=== PATIENT | female | born 1950 | race Caucasian/White ===

== ENCOUNTER → 2017-08-05 14:28 | Outpatient (CLI) | payer MEDICARE, SELFPAY ==
--- NOTE | 2017-08-05 14:33 | DI.MG.S_ITS ---
BILATERAL DIGITAL SCREENING MAMMOGRAM 3D/2D WITH CAD: 08/05/2017 CLINICAL: Routine screening. Comparison is made to exams dated: 07/19/2016 mammogram, 06/05/2015 mammogram, and 05/20/2014 mammogram - [facility]. There are scattered fibroglandular elements in both breasts. Current study was also evaluated with a Computer Aided Detection (CAD) system. There are benign vascular calcifications in both breasts. No significant masses, calcifications, or other findings are seen in either breast. There has been no significant interval change. IMPRESSION: BENIGN There is no mammographic evidence of malignancy. A 1 year screening mammogram is recommended. This exam was interpreted at Station ID: [id number]. NOTE: For mammograms, a report in lay terms will be sent to the patient. Approximately 15% of breast malignancies will not be visualized mammographically. In the management of a palpable breast mass, a negative mammogram must not discourage biopsy of a clinically suspicious lesion. Electronically Signed By: Sirena patel/flex:08/05/2017 15:07:22 letter sent: Normal Exam ACR BI-RADS Category 2: Benign Finding(s) 3342F
== END ==
PROVIDERS: PCP Physician Assistant; Visit Provider Physician Assistant
DX: Z12.31 Encounter for screening mammogram for malignant neoplasm of breast (principal)
CPT/HCPCS: 77063; 77067; 77080

== ENCOUNTER → 2017-08-23 10:38 | Outpatient (CLI) | payer MEDICARE, SELFPAY ==
[2017-08-23 12:21] LABS: Free T4, Direct Thyroxine 1.13 ng/dL (0.78-2.19)
[2017-08-23 12:35] LABS: Thyroid Stimulating Hormone 2.55 uIU/mL (0.47-4.68)
== END ==
PROVIDERS: PCP Physician Assistant; Visit Provider Physician Assistant
DX: E03.9 Hypothyroidism, unspecified (principal)
CPT/HCPCS: 36415; 84439; 84443

== ENCOUNTER → 2017-11-23 09:51 | Outpatient (CLI) | payer MEDICARE, SELFPAY ==
[2017-11-23 11:12] LABS: Cholesterol 205 mg/dL (140-199); Glucose 97 mg/dL (80-110); HDL Cholesterol 100 mg/dL (40-60); LDL Cholesterol Calculated 80 mg/dL (<100); Triglycerides 127 mg/dL (35-150)
[2017-11-23 11:39] LABS: Thyroid Stimulating Hormone 2.57 uIU/mL (0.47-4.68)
== END ==
PROVIDERS: PCP Physician Assistant; Visit Provider Physician Assistant
DX: E03.9 Hypothyroidism, unspecified (principal); E78.5 Hyperlipidemia, unspecified; I10 Essential (primary) hypertension; R73.01 Impaired fasting glucose
CPT/HCPCS: 36415; 80061; 82947; 84443

== ENCOUNTER 2018-07-30 20:37 | Emergency (ER) | payer MEDICARE, OTHER, SELFPAY ==
[2018-07-30 20:35] VITALS: BP 148/72; PULSE 95; RESP 22; TEMP 36.3; O2SAT 97; BMI 31.3
--- NOTE | 2018-07-30 20:41 | ED_ITS ---
HPI - Fall General Chief Complaint: Trauma Stated Complaint: GLF Time Seen by Provider: 07/30/18 20:41 Source: patient and EMS Mode of arrival: EMS Limitations: other (Intoxication) History of Present Illness HPI Narrative: 68-year-old female not on blood thinners brought in by EMS after she sustained a fall while walking outside of her house. She states she does not know why she fell however does admit to drinking a bottle of wine this evening. EMS reports that she is having some memory issues. The stated that she was able to help them get her off the ground onto the stretcher. They did place her in a cervical collar not on a backboard. Does have bleeding from her face. EMS reports that she has been repeating herself multiple times. Has little recollection of the fall. Related Data Home Medications Medication Instructions Recorded Confirmed aspirin 325 mg PO PRN PRN #0 08/23/16 07/24/18 Previous Rx's Medication Instructions Recorded clindamycin phosphate [Cleocin T] 1 % TP QDAY PRN #30 gm 07/06/17 atorvastatin 10 mg tablet 10 mg PO HS #90 tab 11/14/17 doxycycline hyclate 100 mg capsule 100 mg PO QDAY #90 cap 11/14/17 hydrochlorothiazide 25 mg PO QDAY #90 tab 11/14/17 levothyroxine 88 mcg tablet 88 mcg PO QDAY #90 tab 11/14/17 lisinopril 5 mg tablet 5 mg PO DAILY #90 tab 07/17/18 Allergies Allergy/AdvReac Type Severity Reaction Status Date / Time No Known Drug Allergies Allergy Verified 07/30/18 20:57 Review of Systems Constitutional Denies fever(s), Denies frequent falls and Denies weakness Eyes Denies diplopia ENT Ears, Nose, Mouth, and Throat: Denies disequilibrium Cardiovascular Denies chest pain and Denies dyspnea Respiratory Denies dyspnea Gastrointestinal Gastrointestinal: Denies abdominal pain Musculoskeletal Denies myalgias and Denies arthralgias Integumentary/Breasts Comments: Cuts and abrasions to her face Neurologic Reports confusion, Denies frequent falls, Denies focal weakness, Reports memory loss, Denies disequilibrium and Denies weakness Psychiatric Reports confusion and Reports memory loss Hematologic/Lymphatic Denies easy bleeding and Denies easy bruising Exam Initial Vital Signs Initial Vital Signs: Vital Signs Temperature 97.4 F L 07/30/18 20:35 Pulse Rate 95 H 07/30/18 20:35 Respiratory Rate 22 07/30/18 20:35 Blood Pressure 148/72 H 07/30/18 20:35 Pulse Oximetry 97 07/30/18 20:35 Const General: cooperative, comfortable, well developed and well groomed Orientation: alert, awake and confused [facility] Head: normal to inspection and normocephalic Ears: TM's normal bilaterally Face and sinus: abrasion and laceration Mouth: oral mucosae normal Teeth and gingiva: dentition normal Eyes Pupils: PERRL EOM: EOM intact bilaterally Resp Effort & Inspection: normal respiratory effort Auscultation: clear to auscultation bilaterally Cardio Rate: regular rate Rhythm: regular rhythm Skin Other: Multiple abrasions to the face Neuro General: alert and awake Speech: speech normal Extrem General: normal to inspection and capillary refill normal Psych Appearance: grossly normal and well ket [facility] Medical History Hyperlipidemia (Acute) Hypertension (Acute) Hypothyroid (Acute) Family History (Updated 08/23/16 @ 00:00 by Pilar Riggs PA-C) Father Coronary artery disease Mother Unspecified essential hypertension Heart disease Smoker COPD (chronic obstructive pulmonary disease) Social History Smoking Status: Never smoker second hand exposure: No alcohol intake: current (Vodka, wine, every day) substance use type: does not use Family History (Updated 08/23/16 @ 00:00 by Pilar Riggs PA-C) Father Coronary artery disease Mother Unspecified essential hypertension Heart disease Smoker COPD (chronic obstructive pulmonary disease) Social History Smoking Status: Never smoker second hand exposure: No alcohol intake: current (Vodka, wine, every day) substance use type: does not use Procedures Laceration Repair Laceration 1: Site: face (Chin) Size (cm): 1 Description: linear Depth: simple, single layer Local Anesthetic: lidocaine 1% Amount of anesthesia used (mL): 2 Pre-repair: irrigated extensively Skin layer closed with: other (Chromic) Size (cm): 5-0 Number of sutures: 2 Technique: simple, interrupted Laceration 2: Site: face (Right cheek) Side (If applicable): right Size (cm): 3 Description: stellate Depth: simple, single layer Local Anesthetic: lidocaine 1% Amount of anesthesia used (mL): 4 Pre-repair: wound explored Skin layer closed with: other (Chromic) Size (cm): 5-0 Number of sutures: 8 Technique: simple, interrupted Scores GCS Hardik coma scale eye opening: Spontaneous Hardik coma scale verbal response: Orientated Lane coma scale motor response: Obey commands Hardik coma scale total score: 15 Course Orders Ordered: ED Orders 07/30/18 20:42 CT cervical spine wo con Stat CT facial bones wo con Stat CT head/brain wo con Stat Vital Signs - 8 hr 07/30/18 20:35 07/30/18 21:05 07/30/18 21:33 Temperature 97.4 F L 97.4 F L Pulse Rate 95 H 95 H 85 Respiratory Rate 22 18 17 Blood Pressure 148/72 H 148/72 H Blood Pressure [Right Arm] 157/57 H Pulse Oximetry 97 97 98 07/30/18 22:34 Temperature Pulse Rate 78 Respiratory Rate 18 Blood Pressure Blood Pressure [Right Arm] 131/78 Pulse Oximetry 98 MDM - Fall Imaging Data CT scan face: Radiologist's impression: [place] [address] CT Scan Report Signed Patient: Ariella Bailey [facility]#: [id number] : 8Acct:[id number] Age/Sex: 68 / FDate of Service: 07/30/18 Loc: ED Accession Number: [id number] Procedure: CT facial bones wo con Ordering Provider: Fredis Elliott D.O. PROCEDURE: CT FACIAL BONES WO CON INDICATIONS: Fall with facial wounds TECHNIQUE: Noncontrast 2.5 mm thick axial images acquired from the mandible through the frontal sinuses, with coronal and sagittal reformatting. For radiation dose reduction, the following was used: automated exposure control, adjustment of mA and/or kV according to patient size. COMPARISON: None. FINDINGS: Image quality: Excellent. Bones and teeth: Orbital watt are intact. Sinus wtat show no fracture or deformity. Nasal bones and septum are intact. Visualized portions of the mandible demonstrate no fractures or subluxation. Zygomatic arches are intact. Pterygoid plates are intact. Visualized portions of the skull base and auditory canals are intact. Sinuses: There are bilateral maxillary sinus mucus retention cysts. Paranasal sinuses are otherwise aerated, without fluid levels, mucosal thickening, or mucoceles. Mastoid air cells are aerated. Soft tissues: A soft tissue laceration is present over the right aspect of the mandible. A laceration with fat stranding and trace of cutaneous emphysema in the overlying the zygoma and right buccal region. Multiple punctate high density foci are present within the skin of the bilateral buccal regions suggesting radiodense foreign bodies. Vascular: Visualized vascular structures appear normal in the absence of contrast. Carotid artery calcification is noted on the left. Bony vascular foramina and canals are intact. IMPRESSION: 1. No acute fractures or dislocations. 2. Soft tissue lacerations, hematoma, and bilateral buccal region punctate radiodensities suspicious for foreign bodies embedded in the skin. 3. Bilateral maxillary sinus mucus retention cysts. Dictated by: Sirena Culver M.D. on 07/30/2018 at 21:16 Approved by: Sirena Culver M.D. on 07/30/2018 at 21:20 CT scan - head: Radiologist's impression: [place] [employer] [address] CT Scan Report Signed Patient: Ariella Bailey [facility]#: [id number] : 8Acct:[id number] Age/Sex: 68 / FDate of Service: 07/30/18 Loc: ED Accession Number: [id number] Procedure: CT head/brain wo con Ordering Provider: Fredis Elliott D.O. PROCEDURE: CT CERVICAL SPINE WO CON INDICATIONS: Fall not on blood thinners with memory loss TECHNIQUE: Noncontrast 3 mm thick sections acquired from the skull base to the T4 level. Sagittal and coronal reformats were then constructed. For radiation dose reduction, the following was used: automated exposure control, adjustment of mA and/or kV according to patient size. COMPARISON: None. FINDINGS: Image quality: Excellent. Bones: No fractures or dislocations. Mild intervertebral disc space narrowing and osteophytosis is present at C5-6. Visualized superior ribs are intact. Soft tissues: Prevertebral soft tissues are normal in thickness. No paravertebral hematomas. No apical pneumothoraces. A subcentimeter calcified granuloma is present at the right apex. The thyroid gland is unremarkable. Scattered atheromatous calcifications are present at the thoracic aortic arch. IMPRESSION: 1. No acute cervical spine injury. 2. Mild degenerative change. Dictated by: Sirena Culver M.D. on 07/30/2018 at 21:23 Approved by: Sirena Culver M.D. on 07/30/2018 at 21:25 CT cervical spine: Radiologist's impression: [address] [address] [address] Scan Report Signed Patient: Ariella Bailey [facility]#: [id number] : 8Acct:[id number] Age/Sex: 68 / FDate of Service: 07/30/18 Loc: ED Accession Number: [id number] Procedure: CT cervical spine wo con Ordering Provider: Fredis Elliott D.O. PROCEDURE: CT HEAD/BRAIN WO CON INDICATIONS: Fall TECHNIQUE: Noncontrast 4.5 mm thick angled axial sections acquired from the foramen magnum to the vertex, with coronal and sagittal reformats. For radiation dose reduction, the following was used: automated exposure control, adjustment of mA and/or kV according to patient size. COMPARISON: None. FINDINGS: Image quality: Excellent. CSF spaces: Basal cisterns are patent. No extra-axial fluid collections. The ventricles are symmetric in size and shape. Brain: No intracranial bleeds or masses. There is cerebral volume loss for ag e, with resultant ventricular and sulcal prominence. There are periventricular and deep white matter chronic small vessel ischemic changes. There is intracranial internal carotid artery atherosclerosis. Skull and face: A subcutaneous hematoma is present within the right buccal region. A soft tissue laceration overlies the right zygoma. Calvarium and visualized facial bones appear intact, without suspicious lesions. Sinuses: There are bilateral maxillary sinus mucus retention cysts. Visualized sinuses and mastoids are otherwise clear. IMPRESSION: 1. No acute intracranial findings. 2. Hematoma and soft tissue laceration within the right buccal region and zygoma. No underlying calvarial abnormality. Dictated by: Sirena Culver M.D. on 07/30/2018 at 21:26 Approved by: Sirena Culver M.D. on 07/30/2018 at 21:[address] [facility] Narrative Medical decision making narrative: Patient admits to drinking alcohol. She is also clinically intoxicated. Head CT facial CT and cervical spine CT negative for fractures. The cervical collar was removed. She did have a GCS of 15. The 2 lacerations on her face were closed as described above. The rest were abrasions. She is up-to-date on her tetanus. She was given care instructions and return precautions. She was discharged under the care of her and other friends who drove her home. Will hold on further workup for now. She has no other signs of trauma. Discharge Plan Departure Patient Disposition: Home Clinical Impression: Abrasion of skin Face lacerations Qualifiers: Encounter type: initial encounter Qualified Code(s): S01.81XA - Laceration without foreign body of other part of head, initial encounter Fall Qualifiers: Encounter type: initial encounter Qualified Code(s): W19.XXXA - Unspecified fall, initial encounter Discharge Date/Time: 07/30/18 22:51 Interventions: ED Discharge Assessment Last Done: 07/30/18 22:50 Instructions: DI for Laceration Repair -- Simple Activity Restrictions/Additional Instructions: The stitches are absorbable in should dissolve on their own. I do recommend that you ice the right eye. Expect more swelling over the next couple days. You can shower like normal. Use soap and water like normal. Return to the emergency department for any new or worsening symptoms. Prescriptions: No Action aspirin 325 MG tablet 325 mg PO PRN PRNQty: 0 RF: 0 clindamycin phosphate [Cleocin T] 1 % gel 1 % TP QDAY PRNQty: 30 RF: 3 atorvastatin [Lipitor] 10 mg tablet 10 mg PO HS Qty: 90 RF: 3 doxycycline hyclate 100 mg capsule 100 mg PO QDAY Qty: 90 RF: 4 levothyroxine [Levoxyl] 88 mcg tablet 88 mcg PO QDAY Qty: 90 RF: 3 hydrochlorothiazide 25 mg tablet 25 mg PO QDAY Qty: 90 RF: 3 lisinopril 5 mg tablet 5 mg PO DAILY Qty: 90 RF: 3 Referrals: Pilar Riggs PA-C [Primary Care Provider] -
[2018-07-30 21:05] VITALS: BP 148/72; PULSE 95; RESP 18; TEMP 36.3; O2SAT 97
[2018-07-30 21:33] VITALS: BP 157/57; PULSE 85; RESP 17; O2SAT 98
[2018-07-30 22:34] VITALS: BP 131/78; PULSE 78; RESP 18; O2SAT 98
== END 2018-07-30 22:51 | disposition home or self-care (01) ==
PROVIDERS: Emergency Provider Emergency Medicine; PCP Physician Assistant
DX: S01.81XA Laceration without foreign body of other part of head, initial encounter (principal); W19.XXXA Unspecified fall, initial encounter
CPT/HCPCS: 12013; 70450; 70486; 72125; 99283; 99284

== ENCOUNTER → 2018-08-08 12:05 | Outpatient (CLI) | payer MEDICARE, OTHER, SELFPAY ==
--- NOTE | 2018-08-08 | DI.MG.S_ITS ---
BILATERAL DIGITAL SCREENING MAMMOGRAM 3D/2D WITH CAD: 08/08/2018 CLINICAL: Routine screening. Comparison is made to exams dated: 08/05/2017 mammogram, 07/19/2016 mammogram, and 06/05/2015 mammogram - [facility]. There are scattered fibroglandular elements in both breasts. Current study was also evaluated with a Computer Aided Detection (CAD) system. There are benign vascular calcifications in both breasts. No significant masses, calcifications, or other findings are seen in either breast. There has been no significant interval change. IMPRESSION: There is no mammographic evidence of malignancy. A 1 year screening mammogram is recommended. This exam was interpreted at Station ID: [id number]. NOTE: For mammograms, a report in lay terms will be sent to the patient. Approximately 15% of breast malignancies will not be visualized mammographically. In the management of a palpable breast mass, a negative mammogram must not discourage biopsy of a clinically suspicious lesion. Electronically Signed By: Flex neumann/flex:08/08/2018 12:41:53 letter sent: Normal Exam ACR BI-RADS Category 2: Benign Finding(s) 3342F
== END ==
PROVIDERS: PCP Physician Assistant; Visit Provider Physician Assistant
DX: Z12.31 Encounter for screening mammogram for malignant neoplasm of breast (principal)
CPT/HCPCS: 77063; 77067

== ENCOUNTER → 2018-12-25 07:35 | Outpatient (CLI) | payer MEDICARE, OTHER, SELFPAY ==
[2018-12-25 08:57] LABS: Alanine Aminotransferase 17 IU/L (9-52); Albumin 4.1 g/dL (3.5-5.0); Albumin Globulin Ratio 1.4 (1.0-2.8); Alkaline Phosphatase 60 U/L (38-126); Aspartate Aminotransferase 24 IU/L (14-36); Bilirubin Total 0.8 mg/dL (0.2-1.3); Blood Urea Nitrogen 18 mg/dL (7-17); Calcium 9.3 mg/dL (8.4-10.2); Carbon Dioxide 28 mmol/L (22-32); Chloride 99 mmol/L (98-107); Cholesterol 193 mg/dL (140-199); Creatinine Urine Random 191.4 mg/dL; Estimated Glomerular Filt Rate > 60.0 mL/min (>60); Globulin 2.9 g/dL (1.7-4.1); Glucose 120 mg/dL (80-110); HDL Cholesterol 99 mg/dL (40-60); HEMOLYSIS < 15 (0-50); LDL Cholesterol Calculated 75 mg/dL (<100); Potassium 4.1 mmol/L (3.4-5.1); Sodium 136 mmol/L (137-145); Triglycerides 93 mg/dL (35-150)
[2018-12-25 08:58] LABS: Hemoglobin A1C% w Est Avg Glu 5.2 % (4.0-6.0)
[2018-12-25 08:59] LABS: Microalbumi Creatinin Ratio Ur 20.8 ug/mg CR (<30)
[2018-12-25 09:24] LABS: Thyroid Stimulating Hormone 3.84 uIU/mL (0.47-4.68)
== END ==
PROVIDERS: PCP Physician Assistant; Visit Provider Physician Assistant
DX: E03.9 Hypothyroidism, unspecified (principal); E78.5 Hyperlipidemia, unspecified; I10 Essential (primary) hypertension; R73.01 Impaired fasting glucose
CPT/HCPCS: 36415; 80053; 80061; 82043; 82570; 83036; 84443

== ENCOUNTER → 2019-09-24 07:01 | Outpatient (CLI) | payer MEDICARE, OTHER, SELFPAY ==
[2019-09-24 08:28] LABS: Hematocrit 41.1 % (36-46); Hemoglobin 14.2 g/dL (12.0-16.0); Mean Corpuscular HGB Conc 34.4 % (30-36); Mean Corpuscular Hemoglobin 33.6 PG (26-34); Mean Corpuscular Volume 97.6 fL (80-100); Platelet Count 180 X10^3/uL (150-400); Red Blood Cell Count 4.21 X10^6/uL (4.0-5.2); Red Cell Distribution Width 13.2 % (11.6-14.8); White Blood Cell Count 4.3 X10^3/uL (4.5-11.0)
[2019-09-24 08:38] LABS: Hemoglobin A1C% w Est Avg Glu 5.3 % (4.0-6.0)
[2019-09-24 08:42] LABS: Alanine Aminotransferase 24 IU/L (<35); Albumin 4.2 g/dL (3.5-5.0); Albumin Globulin Ratio 1.4 (1.0-2.8); Alkaline Phosphatase 53 U/L (38-126); Aspartate Aminotransferase 35 IU/L (14-36); Bilirubin Total 0.7 mg/dL (0.2-1.3); Blood Urea Nitrogen 23 mg/dL (7-17); Calcium 9.6 mg/dL (8.4-10.2); Carbon Dioxide 29 mmol/L (22-32); Chloride 101 mmol/L (98-107); Cholesterol 211 mg/dL (140-199); Estimated Glomerular Filt Rate > 60.0 mL/min (>60); Globulin 2.9 g/dL (1.7-4.1); Glucose 105 mg/dL (80-110); HDL Cholesterol 96 mg/dL (40-60); HEMOLYSIS < 15 (0-50); LDL Cholesterol Calculated 94 mg/dL (<100); Potassium 4.7 mmol/L (3.4-5.1); Sodium 135 mmol/L (137-145); Total Protein 7.1 g/dL (6.3-8.2); Triglycerides 107 mg/dL (35-150)
[2019-09-24 09:16] LABS: TSH w/ Reflex to FT4 1.13 uIU/mL (0.47-4.68)
== END ==
PROVIDERS: PCP Registered Nurse Diabetes Educator; Referring Provider Registered Nurse Diabetes Educator; Visit Provider Registered Nurse Diabetes Educator
DX: E03.9 Hypothyroidism, unspecified (principal); E78.5 Hyperlipidemia, unspecified; I10 Essential (primary) hypertension; R73.01 Impaired fasting glucose
CPT/HCPCS: 36415; 80053; 80061; 83036; 84443; 85027

== ENCOUNTER → 2019-10-04 11:16 | Outpatient (CLI) | payer MEDICARE, OTHER, SELFPAY ==
--- NOTE | 2019-10-04 11:18 | DI.MG.S_ITS ---
BILATERAL DIGITAL SCREENING MAMMOGRAM 3D/2D WITH CAD: 10/04/2019 CLINICAL: Routine screening. Comparison is made to exams dated: 08/08/2018 mammogram, 08/05/2017 mammogram, and 07/19/2016 mammogram - [facility]. There are scattered fibroglandular elements in both breasts. Current study was also evaluated with a Computer Aided Detection (CAD) system. There are benign vascular calcifications in both breasts. No significant masses, calcifications, or other findings are seen in either breast. There has been no significant interval change. IMPRESSION: There is no mammographic evidence of malignancy. A 1 year screening mammogram is recommended. This exam was interpreted at Station ID: [id number]. NOTE: For mammograms, a report in lay terms will be sent to the patient. Approximately 15% of breast malignancies will not be visualized mammographically. In the management of a palpable breast mass, a negative mammogram must not discourage biopsy of a clinically suspicious lesion. Electronically Signed By: Sirena patel/flex:10/04/2019 12:38:36 letter sent: Normal Exam ACR BI-RADS Category 2: Benign Finding(s) 3342F
== END ==
PROVIDERS: PCP Registered Nurse Diabetes Educator; Referring Provider Registered Nurse Diabetes Educator; Visit Provider Registered Nurse Diabetes Educator
DX: Z12.31 Encounter for screening mammogram for malignant neoplasm of breast (principal)
CPT/HCPCS: 77063; 77067

== ENCOUNTER → 2019-10-09 14:52 | Outpatient (CLI) | payer MEDICARE, OTHER, SELFPAY ==
[2019-10-10 23:23] LABS: COVID19 Sendout Not Detected (Not Detect)
== END ==
PROVIDERS: PCP Registered Nurse Diabetes Educator; Visit Provider Physician Assistant
DX: Z01.812 Encounter for preprocedural laboratory examination (principal)
CPT/HCPCS: 87635

== ENCOUNTER 2019-10-12 07:25 | Day surgery (SDC) | payer MEDICARE, OTHER, SELFPAY ==
[2019-10-12] VITALS (7 sets, daily range): BP systolic 108–151; BP diastolic 56–80; PULSE 56–72; RESP 10–16; TEMP 36.1–36.4; O2SAT 92–100; BMI 32.5
--- NOTE | 2019-10-12 07:32 | PM.HP.1 ---
History of Present Illness History of Present Illness Date Patient Seen: 10/12/19 Time Patient Seen: 08:32 Chief complaint: [facility] [place] Narrative: This is a 69 yo woman who had a colonoscopy ten years ago, on which three polyps were removed, and five years ago on which no polyps were seen. She denies any bleeding, melena, unexplained weight loss, unexplained abdominal pain. She denies significant family history of colon polyps and colon cancer. ROS: Thirteen system review is otherwise negative other than as mentioned below and in HPI. PE: GENERAL: Well groomed and cooperative. Appears stated age. Answers questions promptly and appropriately. Vital signs noted. HENT: Normocephalic, atraumatic. Hearing intact. EYES: Conjunctiva pink, sclera white, no periorbital swelling. CARDIOVASCULAR: Regular rate. No pedal edema. RESPIRATORY: Non-tachypneic, breathing comfortably on room air. GASTROINTESTINAL: Abdomen soft and non-distended GENITALURINARY: No flank tenderness. MUSCULOSKELETAL: Equal tone and mass bilaterally. SKIN: Warm, dry, soft, appropriate color for ethnicity. No other lesions, rashes, or wounds. NEURO: Alert and Oriented X 3. No gross sensory deficits, or cognitive issues. PSYCH: Appropriate affect and mood. Patient History Medical History Colon cancer screening (Acute) Hyperlipidemia (Acute) Hypertension (Acute) Hypothyroid (Acute) Well adult (Acute) Family & Social History Family History Father Coronary artery disease Mother Unspecified essential hypertension Heart disease Smoker COPD (chronic obstructive pulmonary disease) Tobacco & Substance use: Smoking Status Never smoker alcohol intake current alcohol intake frequency 3 or more drinks per day Substance Use Type does not use Meds Home Medications and Allergies Home Medications Medication Instructions Recorded Confirmed Type varicella-zoster [id number] (PF) 50 50 mcg IM ONCE #1 each 09/25/18 09/24/19 Rx mcg/0.5 mL IM susp, kit CBD roll-on stick See Rx Instructions .ROUTE .COMPLEX 11/22/18 09/24/19 History acetaminophen 500 mg tablet 500 mg PO ONCE PRN tab 11/22/18 09/24/19 History ibuprofen 200 mg tablet 200 mg PO ONCE PRN tab 11/22/18 09/24/19 History clindamycin phosphate 1 % topical 1 % TOPICAL QDAY #30 gm 09/24/19 09/24/19 Rx gel doxycycline hyclate 100 mg capsule 100 mg PO QDAY #90 cap 09/24/19 09/24/19 Rx hydrochlorothiazide 25 mg tablet 25 mg PO QDAY #90 tab 09/24/19 09/24/19 Rx levothyroxine 88 mcg tablet 88 mcg PO QDAY #90 tab 09/24/19 09/24/19 Rx lisinopril 5 mg tablet 5 mg PO DAILY #90 tab 09/24/19 09/24/19 Rx atorvastatin [Lipitor] 20 mg PO HS 10/12/19 10/12/19 History Allergies Allergy/AdvReac Type Severity Reaction Status Date / Time No Known Drug Allergies Allergy Verified 10/12/19 07:44 Assessment & Plan Assessment and plan (1) Colon polyps: Status: Acute Assessment & Plan narrative: Risks and benefits of screening colonoscopy and possible polypectomy were discussed with the patient including risk of bleeding, perforation, need for additional procedures, risks of anesthesia. The patient desires to proceed with the colonoscopy procedure. COVID-19 COVID-19 status: Negative Result date/Date tested (Pos, Neg/Pending): 10/09/19 Time Spent With Patient Time with patient: 15-24 minutes Quality VTE Deep Vein Thrombosis/Pulmonary Embolism Present on Admission: No
[2019-10-12] MEDS: SODIUM CHLORIDE 0.9% 1,000 ML 200 ML IV (08:04)
--- NOTE | 2019-10-12 08:15 | PM.OP.ENDO ---
Operative Date/Time/Diagnoses Date of procedure: 10/12/19 Time of procedure: 08:15 Pre-op diagnosis: personal history of colon polyps Procedure & Clinicians Study performed: Colonoscopy Indications: personal history of colon polyps Surgeon: Neida Brock Procedure Notes SCOAP/Timeout: performed Procedure in detail: The patient was brought to the room and placed in left lateral decubitus position with all bony prominences padded. A time-out was performed and then the patient was given procedural sedation starting with 4 mg of Versed and 100 mcg of fentanyl. A total of 6 mg of Versed and 100 micro g of fentanyl were given for the entire procedure. Vitals were monitored throughout the procedure and remained stable. Once adequately sedated, the procedure was begun. A rectal exam was performed revealing no abnormalities. The colonoscope was then introduced to the rectum and advanced to the cecum in the usual fashion. The colon was very tortuous, and there were many difficult turns, requiring placing pressure on the abdomen, using a stiffener, and events maneuvers to reach the cecum. The cecum was identified by the appendiceal orifice, the mucosal tri-fold, and the ileocecal valve. The scope was then retracted while rotating side to side and examining each mucosal fold. At the conclusion of the procedure retroflexion was performed and small grade 1-2 internal hemorrhoids without stigmata of bleeding were seen. The scope was then withdrawn from the rectum the procedure was concluded. The patient tolerated the procedure well and was transferred to the PACU in stable condition. Scope withdrawal time: 8 Sedation minutes: 22 Specimen(s): none sent Complications: none Impression: Normal colon Post-procedure Recommendations: Colonscopy in 10 years (Due to 2 normal colonoscopies 5 years apart. If you have symptoms concerning for colorectal disorder prior to that time, you should have a colonoscopy done sooner. If you are not well enough for colonoscopy at age 79, you in your primary care doctor may decide to the for the procedure.) Follow up: as needed Disposition: PACU
[2019-10-12] MEDS: fentaNYL 250 MCG/5 ML INJ IV (08:44)
[2019-10-12] MEDS: MIDAZOLAM 5 MG/5 ML VIAL IV (08:44)
--- NOTE | 2019-10-12 09:11 | SUR.PHASEI ---
0854 - Pt received to PACU after MAC. Report received from MATTI Mariscal.
== END 2019-10-12 09:35 | disposition home or self-care (01) ==
PROVIDERS: PCP Registered Nurse Diabetes Educator; Referring Provider Surgery; Visit Provider Surgery
PROC: 0DJD8ZZ Inspection of Lower Intestinal Tract, Via Natural or Artificial Opening Endoscopic (ICD-10-PCS; CPT 45378; principal; 2019-10-12 08:30)
DX: Z12.11 Encounter for screening for malignant neoplasm of colon (principal); Z86.010 Personal history of colon polyps; K64.0 First degree hemorrhoids
CPT/HCPCS: G0105; 99152; J2250; J3010

== ENCOUNTER 2020-01-12 14:41 | Emergency (ER) | payer MEDICARE, OTHER, SELFPAY ==
[2020-01-12] VITALS (38 sets, daily range): BP systolic 120–200; BP diastolic 57–95; PULSE 58–97; RESP 1–40; TEMP 36.6; O2SAT 93–98; BMI 32.1
--- NOTE | 2020-01-12 14:45 | DI.RAD.S_ITS ---
PROCEDURE: XR CHEST 1V INDICATIONS: chest pain TECHNIQUE: One view of the chest was acquired. COMPARISON: None. FINDINGS: Surgical changes and devices: None. Lungs and pleura: Lungs are clear. No pleural effusions or pneumothorax. Mediastinum: Mediastinal contours appear normal. Heart size is normal. Bones and chest wall: No suspicious bony lesions. Age-appropriate bony degenerative changes are seen. Overlying soft tissues appear unremarkable. IMPRESSION: Unremarkable portable chest for age. Dictated by: Dionicio Austin M.D. on 01/12/2020 at 14:25 Approved by: Dionicio Austin M.D. on 01/12/2020 at 14:26
[2020-01-12] MEDS: NITROGLYCERIN 0.4 MG SL TAB SL ×2 (14:54→15:02)
[2020-01-12 15:09] LABS: Add Manual Diff / Slide Review NO; Basophils Absolute Auto 100 /uL (0-100); Basophils Percent Auto 1.1 % (0-2); Eosinophils Absolute Auto 100 /uL (0-450); Eosinophils Percent Auto 0.9 % (2-4); Hematocrit 42.8 % (36-46); Hemoglobin 14.7 g/dL (12.0-16.0); Lymphocytes Absolute Auto 2000 /uL (1100-4500); Lymphocytes Percent Auto 30.3 % (25-40); Mean Corpuscular HGB Conc 34.3 % (30-36); Mean Corpuscular Hemoglobin 33.8 PG (26-34); Mean Corpuscular Volume 98.7 fL (80-100); Monocytes Absolute Auto 700 /uL (0-900); Monocytes Percent Auto 10.1 % (3-14); Neutrophils Absolute Auto 3800 /uL (1500-7000); Neutrophils Percent Auto 57.6 % (50-75); Platelet Count 191 X10^3/uL (150-400); Red Blood Cell Count 4.34 X10^6/uL (4.0-5.2); Red Cell Distribution Width 13.9 % (11.6-14.8); White Blood Cell Count 6.6 X10^3/uL (4.5-11.0)
--- NOTE | 2020-01-12 15:09 | PC.NURSE ---
Patient was given 2 sublingual tabs of nitroglycerin and is still having pain.
[2020-01-12 15:13] LABS: Prothrombin Time 11.4 SECONDS (10.1-12.7)
[2020-01-12 15:16] LABS: PTT Partial Thromboplastin Tim 35 SECONDS (26.4-36.2)
[2020-01-12 15:18] LABS: Alanine Aminotransferase 25 IU/L (<35); Albumin 4.4 g/dL (3.5-5.0); Albumin Globulin Ratio 1.5 (1.0-2.8); Alkaline Phosphatase 62 U/L (38-126); Aspartate Aminotransferase 35 IU/L (14-36); BUN Creatinine Ratio 31.6 (6-22); Bilirubin Total 0.7 mg/dL (0.2-1.3); Blood Urea Nitrogen 24 mg/dL (7-17); Calcium 9.4 mg/dL (8.4-10.2); Carbon Dioxide 30 mmol/L (22-32); Chloride 102 mmol/L (98-107); Creatine Kinase 58 U/L (30-135); Estimated Glomerular Filt Rate > 60.0 mL/min (>60); Glucose 148 mg/dL (80-110); HEMOLYSIS 25 (0-50); Lipase 87 U/L (23-300); Magnesium 1.6 mg/dL (1.6-2.3); Potassium 3.8 mmol/L (3.4-5.1); Sodium 138 mmol/L (137-145); Total Protein 7.4 g/dL (6.3-8.2)
[2020-01-12] MEDS: MORPHINE 2 MG/ML INJ IV (15:27)
[2020-01-12 15:29] LABS: Troponin I 0.032 ng/mL (0.01-0.034)
--- NOTE | 2020-01-12 15:36 | ED.CHESTPAIN ---
HPI - Chest Pain General Chief Complaint: Chest Pain Stated Complaint: POSS HEART ATTACK/PAIN Time Seen by Provider: 01/12/20 15:24 Mode of arrival: Ambulatory History of Present Illness HPI narrative: Patient is a 69-year-old female with history of hypertension and hyperlipidemia who presents with chest pain. She and her when a walk this morning about 1.8 miles a typically walks 4 miles without any issue. They went on a short walk today due to her . When she got home she noticed that she had some left scapular pain and radiated around to her chest. It has been fairly steady she describes as dull. She denies any shortness of breath with exertion no nausea or diaphoresis. She has never experienced anything like this in the past. Initially quite hypertensive. No known history of coronary artery disease. The chest pain started roughly 3 hours prior to arriva. She denies any palliation or provocation. Onset (ago): hour(s) (3) Duration: constant Onset: during exertion Pain location: left chest Severity: mild Quality: aching and dull Relieving factors: nothing Exacerbating factors: nothing Related Data Home Medications Medication Instructions Recorded Confirmed CBD roll-on stick See Rx Instructions .ROUTE .COMPLEX 11/22/18 10/12/19 acetaminophen 500 mg tablet 500 mg PO ONCE PRN tab 11/22/18 10/12/19 ibuprofen 200 mg tablet 200 mg PO ONCE PRN tab 11/22/18 10/12/19 atorvastatin [Lipitor] 20 mg PO HS 10/12/19 10/12/19 Previous Rx's Medication Instructions Recorded clindamycin phosphate 1 % topical 1 % TOPICAL QDAY #30 gm 09/24/19 gel hydrochlorothiazide 25 mg tablet 25 mg PO QDAY #90 tab 09/24/19 levothyroxine 88 mcg tablet 88 mcg PO QDAY #90 tab 09/24/19 lisinopril 5 mg tablet 5 mg PO DAILY #90 tab 09/24/19 Allergies Allergy/AdvReac Type Severity Reaction Status Date / Time No Known Drug Allergies Allergy Verified 10/12/19 07:44 Review of Systems Review of Systems Narrative: GENERAL: Denies chills, fatigue, malaise, fever, sweats, travel HEENT: Denies sinus pain, ear pain, sore throat, difficulty swallowing, neck pain RESPIRATORY: Denies dyspnea, cough, wheezing, hemoptysis, sputum. CARDIOVASCULAR: see HPI GASTROINTESTINAL: Denies nausea, vomiting, abdominal pain, diarrhea, constipation, melena. : Denies dysuria, frequency, incontinence, hematuria, urinary retention, flank pain. MUSCULOSKELETAL: Denies weakness, joint pain, or bony pain SKIN: No rash, no erythema, no pruritus NEUROLOGIC: Denies weakness, dizziness, headache, numbness, change in speech, confusion PSYCHIATRIC: No concerning psychosocial issues. 12 point review of systems is negative except for those stated above and HPI Patient History Medical History Colon cancer screening (Acute) Hyperlipidemia (Acute) Hypertension (Acute) Hypothyroid (Acute) Well adult (Acute) Family History Father Coronary artery disease Mother Unspecified essential hypertension Heart disease Smoker COPD (chronic obstructive pulmonary disease) Social History household members: spouse Smoking Status: Former smoker second hand exposure: No alcohol intake: current substance use type: does not use Smoking Status: Former smoker alcohol intake frequency: 3 or more drinks per day Alcohol type: wine Substance Use Type: does not use Exam Initial Vital Signs Initial Vital Signs: Vital Signs Temperature 97.9 F 01/12/20 14:49 Pulse Rate 86 01/12/20 14:49 Respiratory Rate 28 H 01/12/20 14:49 Blood Pressure 200/95 H 01/12/20 14:49 Pulse Oximetry 98 01/12/20 14:49 GENERAL: Well-appearing, well-nourished and in no acute distress. HEENT: Head atraumatic,EOMI, pupils reactive, face symmetric, moist mucous membranes CARDIOVASCULAR: Regular rate and rhythm without murmurs, rubs or gallops. Pain is not reproducible with palpation or arm movement RESPIRATORY: Breath sounds equal bilaterally, no wheezes rales or rhonchi. ABDOMEN: Soft, nontender. Normoactive bowel sounds all 4 quadrants. No guarding or rebound. EXTREMITIES: Normal range of motion, no clubbing or edema. Neurovascularly intact NEUROLOGICAL: Alert and oriented x4.Normal gait and speech. SKIN: Warm, dry, no laceration, no petechiae, no rashes or lesions. Course Orders Ordered: ED Orders 01/12/20 14:45 XR chest 1V Stat EKG-12 Lead Stat 01/12/20 15:00 Complete Blood Count AUTO DIFF Stat Comprehensive Metabolic Panel Stat Lipase Stat Magnesium Stat Partial Thromboplastin Time Stat Prothrombin Time INR Stat Troponin & CK Cardiac Panel Stat 01/12/20 17:50 Troponin I Stat Nitroglycerin (Nitrostat) 0.4 mg SL [id number] PRN PRN Reason: Chest Pain Last Admin: 01/12/20 15:02 Dose: 0.4 mg Documented by: Admin: 01/12/20 14:54 Dose: 0.4 mg Documented by: MARLEY Discontinued Medications Ketorolac Tromethamine (Toradol) 15 mg IV NOW ONE Stop: 01/12/20 16:08 Last Admin: 01/12/20 16:10 Dose: 15 mg Documented by: MARLEY Morphine Sulfate (Morphine) 2 mg IV NOW ONE Stop: 01/12/20 15:25 Last Admin: 01/12/20 15:27 Dose: 2 mg Documented by: MARLEY Vital Signs Vital signs: Vital Signs - 8 hr 01/12/20 14:49 01/12/20 14:54 01/12/20 15:02 Temperature 97.9 F Pulse Rate 86 86 97 H Respiratory Rate 28 H Blood Pressure 200/95 H 200/95 H 153/82 H Pulse Oximetry 98 01/12/20 15:31 01/12/20 15:35 01/12/20 15:40 Temperature Pulse Rate 68 64 Respiratory Rate 15 1 L Blood Pressure 135/66 132/68 Pulse Oximetry 97 98 01/12/20 15:45 01/12/20 15:50 01/12/20 15:55 Temperature Pulse Rate 64 63 63 Respiratory Rate 15 15 12 Blood Pressure 133/66 138/69 135/64 Pulse Oximetry 97 98 97 01/12/20 16:41 01/12/20 17:15 01/12/20 17:20 Temperature Pulse Rate 61 59 L 59 L Respiratory Rate 12 27 H 16 Blood Pressure 157/67 H 123/57 L 124/59 L Pulse Oximetry 98 95 96 01/12/20 17:25 01/12/20 17:30 01/12/20 17:35 Temperature Pulse Rate 63 61 61 Respiratory Rate 24 19 25 H Blood Pressure 123/63 133/65 Pulse Oximetry 96 93 96 01/12/20 17:40 01/12/20 17:41 01/12/20 17:45 Temperature Pulse Rate 62 62 63 Respiratory Rate 19 17 31 H Blood Pressure 125/61 125/61 133/67 Pulse Oximetry 95 95 96 01/12/20 17:50 01/12/20 17:55 01/12/20 18:00 Temperature Pulse Rate 59 L 60 59 L Respiratory Rate 21 21 21 Blood Pressure 123/67 132/67 Pulse Oximetry 94 97 95 01/12/20 18:01 01/12/20 18:05 01/12/20 18:11 Temperature Pulse Rate 60 61 60 Respiratory Rate 21 35 H 23 Blood Pressure 135/68 120/70 144/70 H Pulse Oximetry 94 96 97 01/12/20 18:15 01/12/20 18:20 01/12/20 18:25 Temperature Pulse Rate 62 60 59 L Respiratory Rate 20 22 17 Blood Pressure 140/67 130/69 135/71 Pulse Oximetry 96 97 98 01/12/20 18:30 01/12/20 18:35 01/12/20 18:40 Temperature Pulse Rate 62 58 L 60 Respiratory Rate 27 H 19 21 Blood Pressure 139/77 135/67 133/74 Pulse Oximetry 97 98 98 01/12/20 18:45 01/12/20 18:50 01/12/20 18:55 Temperature Pulse Rate 62 59 L 61 Respiratory Rate 19 20 16 Blood Pressure 143/72 H 141/70 H 145/69 H Pulse Oximetry 95 96 94 01/12/20 19:00 01/12/20 19:05 01/12/20 19:10 Temperature Pulse Rate 61 62 62 Respiratory Rate 26 H 30 H 40 H Blood Pressure 134/62 131/69 137/70 Pulse Oximetry 95 97 96 01/12/20 19:16 Temperature Pulse Rate 64 Respiratory Rate 26 H Blood Pressure 144/63 H Pulse Oximetry 96 MDM - Chest Pain Lab Data Attestation: I reviewed the patient's lab results. Result diagrams: 01/12/20 15:00 01/12/20 15:00 Labs: Lab Results 01/12/20 01/12/20 01/12/20 Range/Units 15:00 15:00 15:00 WBC 6.6 (4.5-11.0) X10^3/uL RBC 4.34 (4.0-5.2) X10^6/uL Hgb 14.7 (12.0-16.0) g/dL Hct 42.8 (36-46) % MCV 98.7 (80-100) fL MCH 33.8 (26-34) PG MCHC 34.3 (30-36) % RDW 13.9 (11.6-14.8) % Plt Count 191 (150-400) X10^3/uL Neut % (Auto) 57.6 (50-75) % Lymph % (Auto) 30.3 (25-40) % [place] % (Auto) 10.1 (3-14) % Eos % (Auto) 0.9 L (2-4) % Baso % (Auto) 1.1 (0-2) % Neut # (Auto) 3800 (2399-9619) /uL Lymph # (Auto) 2000 (1764-1430) /uL [place] # (Auto) 700 (0-900) /uL Eos # (Auto) 100 (0-450) /uL Baso # (Auto) 100 (0-100) /uL PT 11.4 (10.1-12.7) SECONDS INR 1.0 (0.9-1.3) APTT 35 (26.4-36.2) SECONDS Sodium 138 (137-145) mmol/L Potassium 3.8 (3.4-5.1) mmol/L Chloride 102 (98-107) mmol/L Carbon Dioxide 30 (22-32) mmol/L BUN 24 H (7-17) mg/dL Creatinine 0.76 (0.52-1.04) mg/dL Estimated GFR > 60.0 (>60) mL/min BUN/Creatinine Ratio 31.6 H (6-22) Glucose 148 H (80-110) mg/dL Calcium 9.4 (8.4-10.2) mg/dL Magnesium 1.6 (1.6-2.3) mg/dL Total Bilirubin 0.7 (0.2-1.3) mg/dL AST 35 (14-36) IU/L ALT 25 (<35) IU/L Alkaline Phosphatase 62 (38-126) U/L Total Creatine Kinase 58 (30-135) U/L CK-MB (CK-2) TNP CK-MB (CK-2) Rel Index TNP Troponin I 0.032 (0.01-0.034) ng/mL Total Protein 7.4 (6.3-8.2) g/dL Albumin 4.4 (3.5-5.0) g/dL Globulin 3.0 (1.7-4.1) g/dL Albumin/Globulin Ratio 1.5 (1.0-2.8) Lipase 87 (23-300) U/L 10/24/20 Range/Units 17:50 WBC (4.5-11.0) X10^3/uL RBC (4.0-5.2) X10^6/uL Hgb (12.0-16.0) g/dL Hct (36-46) % MCV (80-100) fL MCH (26-34) PG MCHC (30-36) % RDW (11.6-14.8) % Plt Count (150-400) X10^3/uL Neut % (Auto) (50-75) % Lymph % (Auto) (25-40) % [place] % (Auto) (3-14) % Eos % (Auto) (2-4) % Baso % (Auto) (0-2) % Neut # (Auto) (3030-8326) /uL Lymph # (Auto) (0073-2742) /uL Berrien # (Auto) (0-900) /uL Eos # (Auto) (0-450) /uL Baso # (Auto) (0-100) /uL PT (10.1-12.7) SECONDS INR (0.9-1.3) APTT (26.4-36.2) SECONDS Sodium (137-145) mmol/L Potassium (3.4-5.1) mmol/L Chloride (98-107) mmol/L Carbon Dioxide (22-32) mmol/L BUN (7-17) mg/dL Creatinine (0.52-1.04) mg/dL Estimated GFR (>60) mL/min BUN/Creatinine Ratio (6-22) Glucose (80-110) mg/dL Calcium (8.4-10.2) mg/dL Magnesium (1.6-2.3) mg/dL Total Bilirubin (0.2-1.3) mg/dL AST (14-36) IU/L ALT (<35) IU/L Alkaline Phosphatase (38-126) U/L Total Creatine Kinase (30-135) U/L CK-MB (CK-2) CK-MB (CK-2) Rel Index Troponin I 0.028 (0.01-0.034) ng/mL Total Protein (6.3-8.2) g/dL Albumin (3.5-5.0) g/dL Globulin (1.7-4.1) g/dL Albumin/Globulin Ratio (1.0-2.8) Lipase (23-300) U/L Imaging Data Chest x-ray: Radiologist's Impression: PROCEDURE: XR CHEST 1V INDICATIONS: chest pain TECHNIQUE: One view of the chest was acquired. COMPARISON: None. FINDINGS: Surgical changes and devices: None. Lungs and pleura: Lungs are clear. No pleural effusions or pneumothorax. Mediastinum: Mediastinal contours appear normal. Heart size is normal. Bones and chest wall: No suspicious bony lesions. Age-appropriate bony degenerative changes are seen. Overlying soft tissues appear unremarkable. IMPRESSION: Unremarkable portable chest for age. Dictated by: Dionicio Austin M.D. on 01/12/2020 at 14:25 ECG Data Attestation: I personally reviewed and interpreted this ECG as follows: Prior ECG tracings: not available for review Interpretation: Normal sinus rhythm rate 75 p.r. interval 172 QRS [address] changes or T-wave inversions no priors to compare EKG number 2. Normal sinus rhythm rate 64 p.r. interval [address] changes Q-wave noted lead 3 no T-wave inversion MDM Narrative Medical decision making narrative: Patient had full dose aspirin prior to arrival she received 2 nitroglycerin here in the ED which have not change her pain at all. She describes it as a dull ache. She is given morphine and Toradol to help with some of her pain. Repeat troponin is negative and decreasing. However based on patient's symptoms and history I do recommend that she stay in the hospital for stress test. Unfortunately [facility] is not capable of stress test over weekend. I called Dr. Real spoke with Cardiology, who was happy to consult if needed and agreed with admission to the hospitalist. Patient and would like to leave against medical advice. They said they previously been to [facility] for stress testing and it was not done on the weekend. They understand risk of NV. They also understand they may return to the ED at any time if chest pain is worsening or changing also recommended calling 911. The patient is clinically sober, free from distracting injury, appears to have intact insight, judgment and reason. Patient has the capacity to make decisions. Discharge Plan Departure Patient Disposition: Left Against Medical Advice Clinical Impression: Chest pain Qualifiers: Chest pain type: other chest pain Qualified Code(s): R07.89 - Other chest pain Instructions: DI for Chest Pain Activity Restrictions/Additional Instructions: You are leaving against medical advice It is strongly advised that he stay to have his stress test and cardiac rule out. You may return to the emergency department at any time if her chest pain worsens *You have been diagnosed with chest pain *What to do: You do need close outpatient follow-up recommend stress test, echocardiogram *Continue to take medications as directed Aspirin 81 mg daily *Follow up with your primary care provider in 2-3 days *Return to ER if you should have worsening chest pain, shortness of breath, nausea, passing out, palpitations or any new, worsening or concerning symptoms Prescriptions: No Action clindamycin phosphate [Cleocin T] 1 % gel 1 % topical QDAY Qty: 30 RF: 3 hydrochlorothiazide 25 mg tablet 25 mg PO QDAY Qty: 90 RF: 3 levothyroxine [Levoxyl] 88 mcg tablet 88 mcg PO QDAY Qty: 90 RF: 3 lisinopril 5 mg tablet 5 mg PO DAILY Qty: 90 RF: 3 acetaminophen [Tylenol Extra Strength] 500 mg tablet 500 mg PO ONCE PRN (Reason: Pain (Scale Score 1-3)) RF: 0 ibuprofen [Advil] 200 mg tablet 200 mg PO ONCE PRN (Reason: Pain (Scale Score 1-3)) RF: 0 CBD roll-on stick See Rx Instructions .ROUTE .COMPLEX RF: 0 atorvastatin [Lipitor] 10 mg tablet 20 mg PO HS RF: 0 Referrals: Jamie Sheets ARNP [Primary Care Provider] - Stand Alone Forms: Against Medical Advice
[2020-01-12] MEDS: KETOROLAC 60 MG/2 ML VIAL 15 MG IV (16:10)
[2020-01-12 19:23] LABS: Troponin I 0.028 ng/mL (0.01-0.034)
== END 2020-01-12 20:12 | disposition left against medical advice (07) ==
PROVIDERS: Emergency Provider Emergency Medicine; PCP Registered Nurse Diabetes Educator; Referring Provider Registered Nurse Diabetes Educator
DX: R07.89 Other chest pain (principal); I10 Essential (primary) hypertension; E78.5 Hyperlipidemia, unspecified; M25.512 Pain in left shoulder
CPT/HCPCS: 36415; 71045; 80053; 82550; 83690; 83735; 84484; 85025; 85610; 85730; 93005; 93010; 96374; 96375; 99284; J1885; J2270

== ENCOUNTER → 2020-01-22 11:25 | Outpatient (CLI) | payer MEDICARE, OTHER, SELFPAY ==
[2020-01-22 13:58] LABS: COVID19 -Nasal RAPID Negative (Negative)
== END ==
PROVIDERS: PCP Registered Nurse Diabetes Educator; Visit Provider Physician Assistant
DX: Z01.812 Encounter for preprocedural laboratory examination (principal)
CPT/HCPCS: 87635

== ENCOUNTER → 2020-01-25 08:10 | Outpatient (CLI) | payer MEDICARE, OTHER, SELFPAY ==
--- NOTE | 2020-01-25 08:11 | DI.NM.S_ITS ---
PROCEDURE: NM MIKE PERF SPECT REST & STR Rest and exercise myocardial perfusion SPECT with gated imaging and ejection fraction RADIOPHARMACEUTICAL: 13.8 mCi Tc-99m sestamibi IV at rest and 26.5 mCi Tc-99m sestamibi IV at peak exercise. A one day-protocol was performed. INDICATIONS: Chest pain TECHNIQUE: Radiopharmaceutical was injected at peak stress test, and also at rest. SPECT images were obtained. SPECT myocardial perfusion images were displayed in short axis, horizontal long axis, and vertical long axis views. Gated images were reviewed using Dekko software. COMPARISON: None. CARDIAC STRESS: A standard Kareem treadmill exercise tolerance test was performed by the patient under the supervision of an attending staff. The patient exercised for 5 minutes and 24 seconds; functional aerobic impairment (JOAN) is +5%. Hemodynamic data: There is normal heart rate response to exercise stress. Patient achieved 109% of maximum predicted heart rate at peak exercise. Symptoms: Patient denied chest pain during exercise. EKG: No diagnostic EKG changes of ischemia; no ectopy. FINDINGS: Raw data: There is good myocardial labeling by radiotracer. No significant motion artifacts. Tnmb-eb-eoiwg ratio is 0.28 (normal is less than 0.38 for sestamibi tracer, and less than 0.50 for thallium tracer). Left ventricle function: Gated images demonstrate normal left ventricle wall thickening. No segmental wall motion abnormality. No transient ischemic dilation; TID is 0.91 (normal less than 1.3). The left ventricle resting end-diastolic volume is 142 mL. Left ventricle stress ejection fraction is 62%; normal values are above 45%. Myocardial perfusion: There is normal distribution of activity in the left and right ventricular myocardium. No fixed or reversible perfusion defects. IMPRESSION: Low risk, normal treadmill nuclear stress test 1) No perfusion evidence of ischemia or infarction. 2) Normal left ventricular size, wall motion, and systolic function (EF post stress 62%). 3) No ECG evidence of ischemia or infarction. 4) No angina during the study. 5) Average exercise capacity (7.0 METs, JOAN +5% on active scale). Target heart rate achieved. 6) Borderline hypertensive response to exercise (resting BP 126/76mmHg, max BP 202/94mmHg). 7) No prior nuclear stress test available for comparison. Dictated by: Sterling Aparicio MD on 01/25/2020 at 18:20 Approved by: Sterling Aparicio MD on 01/25/2020 at 18:23
--- NOTE | 2020-01-25 14:27 | PM.TREADMILL ---
Cardiac Stress Test Report Referral & Results Date Patient Seen: 01/25/20 Requesting provider: Jamie Sheets Rest ECG: Unremarkable Procedure Note: Today following both written and verbal informed consent the patient was exercised according to a standard Kareem protocol patient went for a total of 5 minutes 24 seconds achieving a maximum heart rate of 163 maximum systolic blood pressure of 202. This is approximately 7.0 METS. Exercise was terminated at this point because of targets were met. Patient was also given Cardiolite through a previously started Hep-Lock IV by the diagnostic imaging staff approximately 1 minute prior to the cessation of exercise. There are no ST-T segment changes identified Patient was quickly tachycardic and perhaps slightly hypertensive overall in her response. She quickly returned to baseline heart rate with cessation of exercise Function aerobic impairment rates-20% on the sedentary scale or 120% normal Occasional to rare PVC including a single ventricular couplets Impression: No evidence of ischemia. Please see perfusion imaging report as well. Excellent exercise capacity Please note: Actual ECG tracings can be found in the PACS system.
== END ==
PROVIDERS: PCP Registered Nurse Diabetes Educator; Referring Provider Registered Nurse Diabetes Educator; Visit Provider Registered Nurse Diabetes Educator
DX: R07.89 Other chest pain (principal)
CPT/HCPCS: 78452; 93016; 93017; 93018; A9502

== ENCOUNTER → 2020-08-21 07:29 | Outpatient (CLI) | payer MEDICARE, OTHER, SELFPAY ==
[2020-08-21 09:12] LABS: Add Manual Diff / Slide Review NO; Basophils Absolute Auto 100 /uL (0-100); Basophils Percent Auto 1.2 % (0-2); Eosinophils Absolute Auto 100 /uL (0-450); Eosinophils Percent Auto 2.1 % (2-4); Hemoglobin 14.4 g/dL (12.0-16.0); Lymphocytes Absolute Auto 1500 /uL (1100-4500); Lymphocytes Percent Auto 35.8 % (25-40); Mean Corpuscular HGB Conc 34.2 % (30-36); Mean Corpuscular Hemoglobin 33.9 PG (26-34); Mean Corpuscular Volume 99.2 fL (80-100); Monocytes Absolute Auto 600 /uL (0-900); Monocytes Percent Auto 13.4 % (3-14); Neutrophils Absolute Auto 2000 /uL (1500-7000); Neutrophils Percent Auto 47.5 % (50-75); Platelet Count 177 X10^3/uL (150-400); Red Blood Cell Count 4.24 X10^6/uL (4.0-5.2); Red Cell Distribution Width 13.4 % (11.6-14.8); White Blood Cell Count 4.2 X10^3/uL (4.5-11.0)
[2020-08-21 09:31] LABS: Hemoglobin A1C% w Est Avg Glu 5.5 % (4.0-6.0)
[2020-08-21 09:39] LABS: Alanine Aminotransferase 25 IU/L (<35); Albumin 4.1 g/dL (3.5-5.0); Albumin Globulin Ratio 1.6 (1.0-2.8); Alkaline Phosphatase 57 U/L (38-126); Aspartate Aminotransferase 35 IU/L (14-36); BUN Creatinine Ratio 36.9 (6-22); Bilirubin Total 0.6 mg/dL (0.2-1.3); Blood Urea Nitrogen 24 mg/dL (7-17); Calcium 9.3 mg/dL (8.4-10.2); Carbon Dioxide 27 mmol/L (22-32); Chloride 101 mmol/L (98-107); Cholesterol 226 mg/dL (140-199); Estimated Glomerular Filt Rate > 60.0 mL/min (>60); Globulin 2.6 g/dL (1.7-4.1); Glucose 101 mg/dL (80-110); HDL Cholesterol 109 mg/dL (40-60); HEMOLYSIS < 15 (0-50); LDL Cholesterol Calculated 93 mg/dL (<100); Potassium 4.4 mmol/L (3.4-5.1); Sodium 136 mmol/L (137-145); Total Protein 6.7 g/dL (6.3-8.2); Triglycerides 122 mg/dL (35-150)
[2020-08-21 10:04] LABS: TSH w/ Reflex to FT4 1.24 uIU/mL (0.47-4.68)
== END ==
PROVIDERS: PCP Registered Nurse Diabetes Educator; Referring Provider Registered Nurse Diabetes Educator; Visit Provider Registered Nurse Diabetes Educator
DX: E03.9 Hypothyroidism, unspecified (principal); R73.01 Impaired fasting glucose; I10 Essential (primary) hypertension; E78.5 Hyperlipidemia, unspecified
CPT/HCPCS: 36415; 80053; 80061; 83036; 84443; 85025

== ENCOUNTER → 2020-10-09 15:06 | Outpatient (CLI) | payer MEDICARE, OTHER, SELFPAY ==
--- NOTE | 2020-10-09 | DI.MG.S_ITS ---
BILATERAL DIGITAL SCREENING MAMMOGRAM 3D/2D WITH CAD: 10/09/2020 CLINICAL: Routine screening. Comparison is made to exams dated: 10/04/2019 mammogram, 08/08/2018 mammogram, and 08/05/2017 mammogram - [facility]. The tissue of both breasts is predominantly fatty. Current study was also evaluated with a Computer Aided Detection (CAD) system. There are benign vascular calcifications in both breasts. There are mole markers on both breasts. No significant masses, calcifications, or other findings are seen in either breast. There has been no significant interval change. IMPRESSION: BENIGN There is no mammographic evidence of malignancy. A 1 year screening mammogram is recommended. This exam was interpreted at Station ID: [id number]. NOTE: For mammograms, a report in lay terms will be sent to the patient. Approximately 15% of breast malignancies will not be visualized mammographically. In the management of a palpable breast mass, a negative mammogram must not discourage biopsy of a clinically suspicious lesion. Electronically Signed By: Addis bryson/flex:10/09/2020 15:57:49 letter sent: Normal Exam ACR BI-RADS Category 2: Benign Finding(s) [id number]
== END ==
PROVIDERS: PCP Registered Nurse Diabetes Educator; Referring Provider Registered Nurse Diabetes Educator; Visit Provider Registered Nurse Diabetes Educator
DX: Z12.31 Encounter for screening mammogram for malignant neoplasm of breast (principal)
CPT/HCPCS: 77063; 77067

== ENCOUNTER → 2020-10-14 08:55 | Outpatient (CLI) | payer MEDICARE, OTHER, SELFPAY ==
[2020-10-14 09:16] LABS: Add Manual Diff / Slide Review NO; Basophils Absolute Auto 0 /uL (0-100); Basophils Percent Auto 1.1 % (0-2); Eosinophils Absolute Auto 100 /uL (0-450); Eosinophils Percent Auto 2.2 % (2-4); Hematocrit 40.6 % (36-46); Hemoglobin 14.1 g/dL (12.0-16.0); Lymphocytes Absolute Auto 900 /uL (1100-4500); Lymphocytes Percent Auto 25.5 % (25-40); Mean Corpuscular HGB Conc 34.6 % (30-36); Mean Corpuscular Hemoglobin 33.5 PG (26-34); Mean Corpuscular Volume 96.7 fL (80-100); Monocytes Absolute Auto 400 /uL (0-900); Neutrophils Absolute Auto 2200 /uL (1500-7000); Neutrophils Percent Auto 60.2 % (50-75); Platelet Count 181 X10^3/uL (150-400); Red Cell Distribution Width 13.8 % (11.6-14.8); White Blood Cell Count 3.6 X10^3/uL (4.5-11.0)
[2020-10-14 09:32] LABS: Alanine Aminotransferase 21 IU/L (<35); Albumin 4.1 g/dL (3.5-5.0); Albumin Globulin Ratio 1.3 (1.0-2.8); Alkaline Phosphatase 56 U/L (38-126); Aspartate Aminotransferase 32 IU/L (14-36); BUN Creatinine Ratio 24.5 (6-22); Bilirubin Total 0.9 mg/dL (0.2-1.3); Blood Urea Nitrogen 13 mg/dL (7-17); Calcium 9.5 mg/dL (8.4-10.2); Carbon Dioxide 30 mmol/L (22-32); Chloride 98 mmol/L (98-107); Estimated Glomerular Filt Rate > 60.0 mL/min (>60); Globulin 3.1 g/dL (1.7-4.1); Glucose 115 mg/dL (80-110); HEMOLYSIS < 15 (0-50); Lipase 117 U/L (23-300); Potassium 3.8 mmol/L (3.4-5.1); Sodium 134 mmol/L (137-145); Total Protein 7.2 g/dL (6.3-8.2)
== END ==
PROVIDERS: PCP Registered Nurse Diabetes Educator; Referring Provider Physician Assistant; Visit Provider Physician Assistant
DX: R10.13 Epigastric pain (principal)
CPT/HCPCS: 36415; 80053; 83690; 85025

== ENCOUNTER → 2020-10-14 09:06 | Outpatient (CLI) | payer MEDICARE, OTHER, SELFPAY ==
--- NOTE | 2020-10-14 09:09 | DI.US.S_ITS ---
PROCEDURE: US ABDOMEN LIMITED INDICATIONS: INTERMITTENT EPIGASTRIC PAIN AND POSITIVE MURPHYS SIGN TECHNIQUE: Real-time focused scanning was performed of the abdomen, with image documentation. COMPARISON: None. FINDINGS: Liver measures 15.9 cm and demonstrates diffusely increased echogenicity. The gallbladder is unremarkable. No wall thickening or pericholecystic fluid. Positive sonographic Freitas sign is noted. No bile duct dilatation. The pancreas is unremarkable IMPRESSION: Positive sonographic Freitas sign however no other sonographic criteria for acute cholecystitis. Coarse echogenic liver suggesting diffuse hepatocellular disease/fatty infiltration. Please correlate with LFTs. Dictated by: Chris Reynoso M.D. on 10/14/2020 at 12:54 Approved by: Chris Reynoso M.D. on 10/14/2020 at 12:55
== END ==
PROVIDERS: PCP Registered Nurse Diabetes Educator; Referring Provider Physician Assistant; Visit Provider Physician Assistant
DX: R10.13 Epigastric pain (principal)
CPT/HCPCS: 36415; 76705; 80053; 83690; 85025

== ENCOUNTER → 2020-12-02 07:30 | Outpatient (CLI) | payer MEDICARE, OTHER, SELFPAY ==
[2020-12-02 09:14] LABS: BUN Creatinine Ratio 31.7 (6-22); Blood Urea Nitrogen 20 mg/dL (7-17); Calcium 9.4 mg/dL (8.4-10.2); Carbon Dioxide 29 mmol/L (22-32); Chloride 103 mmol/L (98-107); Cholesterol 280 mg/dL (140-199); Estimated Glomerular Filt Rate > 60.0 mL/min (>60); Glucose 115 mg/dL (80-110); HDL Cholesterol 104 mg/dL (40-60); HEMOLYSIS < 15 (0-50); LDL Cholesterol Calculated 153 mg/dL (<100); Potassium 4.6 mmol/L (3.4-5.1); Sodium 137 mmol/L (137-145); Triglycerides 116 mg/dL (35-150)
[2020-12-02 09:20] LABS: HEMOLYSIS < 15 (0-50); Iron 123 ug/dL (37-170)
[2020-12-02 09:32] LABS: Percent Iron Saturation 46 % (15-50); Total Iron Binding Capacity 265 ug/dL (265-497); Transferrin 240 mg/dL (206-381)
[2020-12-02 09:49] LABS: Ferritin 163 ng/mL (11-264)
[2020-12-02 15:32] LABS: Hepatitis B Surface Antigen NEGATIVE s/c (NEGATIVE)
[2020-12-02 15:49] LABS: Hep C Virus Ab w/Reflex Quant NEGATIVE s/c (NEGATIVE)
[2020-12-03 01:07] LABS: Hepatitis B Core AB w/Reflex Negative (Negative)
== END ==
PROVIDERS: PCP Registered Nurse Diabetes Educator; Referring Provider Registered Nurse Diabetes Educator; Visit Provider Registered Nurse Diabetes Educator
DX: K76.0 Fatty (change of) liver, not elsewhere classified (principal); I10 Essential (primary) hypertension; E78.5 Hyperlipidemia, unspecified
CPT/HCPCS: 36415; 80048; 80061; 82728; 83540; 83550; 86704; 86803; 87340

== ENCOUNTER → 2021-07-29 07:19 | Outpatient (CLI) | payer MEDICARE, OTHER, SELFPAY ==
[2021-07-29 08:26] LABS: Hematocrit 39.9 % (36-46); Hemoglobin 13.7 g/dL (12.0-16.0); Mean Corpuscular HGB Conc 34.5 % (30-36); Mean Corpuscular Hemoglobin 33.7 PG (26-34); Mean Corpuscular Volume 97.8 fL (80-100); Platelet Count 199 X10^3/uL (150-400); Red Blood Cell Count 4.07 X10^6/uL (4.0-5.2); Red Cell Distribution Width 13.7 % (11.6-14.8)
[2021-07-29 08:38] LABS: Hemoglobin A1C% w Est Avg Glu 5.3 % (4.0-6.0)
[2021-07-29 09:02] LABS: Alanine Aminotransferase 24 IU/L (<35); Albumin 4.2 g/dL (3.5-5.0); Albumin Globulin Ratio 1.4 (1.0-2.8); Alkaline Phosphatase 55 U/L (38-126); Aspartate Aminotransferase 31 IU/L (14-36); BUN Creatinine Ratio 26.7 (6-22); Bilirubin Total 0.8 mg/dL (0.2-1.3); Blood Urea Nitrogen 20 mg/dL (7-17); Calcium 9.1 mg/dL (8.4-10.2); Carbon Dioxide 28 mmol/L (22-32); Chloride 103 mmol/L (98-107); Cholesterol 217 mg/dL (140-199); Estimated Glomerular Filt Rate > 60 mL/min (>60); Globulin 2.9 g/dL (1.7-4.1); Glucose 106 mg/dL (80-110); HEMOLYSIS < 15 (0-50); Potassium 4.8 mmol/L (3.4-5.1); Sodium 136 mmol/L (137-145); Total Protein 7.1 g/dL (6.3-8.2); Triglycerides 91 mg/dL (35-150)
[2021-07-29 09:13] LABS: HDL Cholesterol 114 mg/dL (40-60); LDL Cholesterol Calculated 85 mg/dL (<100)
== END ==
PROVIDERS: PCP Registered Nurse Diabetes Educator; Referring Provider Registered Nurse Diabetes Educator; Visit Provider Registered Nurse Diabetes Educator
DX: E03.9 Hypothyroidism, unspecified (principal); R73.01 Impaired fasting glucose; I10 Essential (primary) hypertension; E78.5 Hyperlipidemia, unspecified; K76.0 Fatty (change of) liver, not elsewhere classified
CPT/HCPCS: 36415; 80053; 80061; 83036; 84443; 85027

== ENCOUNTER → 2021-10-12 14:12 | Outpatient (CLI) | payer MEDICARE, OTHER, SELFPAY ==
--- NOTE | 2021-10-12 | DI.MG.S_ITS ---
BILATERAL DIGITAL SCREENING MAMMOGRAM 3D/2D WITH CAD: 10/12/2021 CLINICAL: Routine screening. Comparison is made to exams dated: 10/09/2020 mammogram, 10/04/2019 mammogram, 08/08/2018 mammogram, and 08/05/2017 mammogram - [facility]. There are scattered fibroglandular elements in both breasts. Current study was also evaluated with a Computer Aided Detection (CAD) system. There are benign vascular calcifications in both breasts. There are mole markers on both breasts. No significant masses, calcifications, or other findings are seen in either breast. There has been no significant interval change. IMPRESSION: BENIGN There is no mammographic evidence of malignancy. A 1 year screening mammogram is recommended. Based on the Tyrer Cuzick model (a risk assessment model) the patient's lifetime risk is 4.4% and her 10 year risk is 3.6%. According to the ACR, ACS, and NCCN guidelines, an annual breast MRI exam along with mammogram is recommended if the patient's lifetime risk is 20% or greater. This exam was interpreted at Station ID: [id number]. NOTE: For mammograms, a report in lay terms will be sent to the patient. Approximately 15% of breast malignancies will not be visualized mammographically. In the management of a palpable breast mass, a negative mammogram must not discourage biopsy of a clinically suspicious lesion. Electronically Signed By: Pollo pizarro/flex:10/12/2021 14:57:40 letter sent: Normal Exam ACR BI-RADS Category 2: Benign Finding(s) [id number]
== END ==
PROVIDERS: PCP Registered Nurse Diabetes Educator; Referring Provider Registered Nurse Diabetes Educator; Visit Provider Registered Nurse Diabetes Educator
DX: Z12.31 Encounter for screening mammogram for malignant neoplasm of breast (principal)
CPT/HCPCS: 77063; 77067

== ENCOUNTER → 2021-11-19 08:57 | Outpatient (CLI) | payer MEDICARE, OTHER, SELFPAY ==
[2021-11-19 10:22] LABS: Hemoglobin 13.6 g/dL (12.0-16.0); Mean Corpuscular HGB Conc 34.9 % (30-36); Mean Corpuscular Hemoglobin 33.5 PG (26-34); Mean Corpuscular Volume 95.9 fL (80-100); Platelet Count 217 X10^3/uL (150-400); Red Blood Cell Count 4.07 X10^6/uL (4.0-5.2); Red Cell Distribution Width 14.2 % (11.6-14.8); White Blood Cell Count 5.2 X10^3/uL (4.5-11.0)
[2021-11-19 11:14] LABS: Hemoglobin A1C% w Est Avg Glu 5.5 % (4.0-6.0)
[2021-11-19 11:15] LABS: Alanine Aminotransferase 19 IU/L (<35); Albumin 4.2 g/dL (3.5-5.0); Albumin Globulin Ratio 1.3 (1.0-2.8); Alkaline Phosphatase 58 U/L (38-126); Aspartate Aminotransferase 26 IU/L (14-36); BUN Creatinine Ratio 30.6 (6-22); Bilirubin Total 0.8 mg/dL (0.2-1.3); Blood Urea Nitrogen 22 mg/dL (7-17); Calcium 9.1 mg/dL (8.4-10.2); Carbon Dioxide 28 mmol/L (22-32); Chloride 99 mmol/L (98-107); Cholesterol 206 mg/dL (140-199); Estimated Glomerular Filt Rate > 60 mL/min (>60); Globulin 3.2 g/dL (1.7-4.1); Glucose 102 mg/dL (80-110); HEMOLYSIS < 15 (0-50); Potassium 4.9 mmol/L (3.4-5.1); Sodium 133 mmol/L (137-145); Total Protein 7.4 g/dL (6.3-8.2); Triglycerides 90 mg/dL (35-150)
[2021-11-19 11:37] LABS: HDL Cholesterol 114 mg/dL (40-60); LDL Cholesterol Calculated 74 mg/dL (<100)
[2021-11-19 11:49] LABS: TSH w/ Reflex to FT4 1.92 uIU/mL (0.47-4.68)
== END ==
PROVIDERS: PCP Registered Nurse Diabetes Educator; Referring Provider Registered Nurse Diabetes Educator; Visit Provider Registered Nurse Diabetes Educator
DX: E03.9 Hypothyroidism, unspecified (principal); R73.01 Impaired fasting glucose; I10 Essential (primary) hypertension; E78.5 Hyperlipidemia, unspecified; K76.0 Fatty (change of) liver, not elsewhere classified
CPT/HCPCS: 36415; 80053; 80061; 83036; 84443; 85027

== ENCOUNTER → 2022-07-20 08:54 | Outpatient (CLI) | payer MEDICARE, OTHER, SELFPAY ==
[2022-07-20 09:56] LABS: Hematocrit 36.2 % (36-46); Hemoglobin 12.8 g/dL (12.0-16.0); Mean Corpuscular HGB Conc 35.2 % (30-36); Mean Corpuscular Hemoglobin 33.8 PG (26-34); Mean Corpuscular Volume 95.9 fL (80-100); Platelet Count 219 X10^3/uL (150-400); Red Blood Cell Count 3.77 X10^6/uL (4.0-5.2); Red Cell Distribution Width 13.7 % (11.6-14.8); White Blood Cell Count 4.6 X10^3/uL (4.5-11.0)
[2022-07-20 11:27] LABS: Alanine Aminotransferase 21 IU/L (<35); Albumin 4.1 g/dL (3.5-5.0); Albumin Globulin Ratio 1.4 (1.0-2.8); Alkaline Phosphatase 54 U/L (38-126); Aspartate Aminotransferase 28 IU/L (14-36); Bilirubin Total 0.6 mg/dL (0.2-1.3); Blood Urea Nitrogen 20 mg/dL (7-17); Calcium 9.3 mg/dL (8.4-10.2); Carbon Dioxide 29 mmol/L (22-32); Chloride 98 mmol/L (98-107); Cholesterol 202 mg/dL (140-199); Estimated Glomerular Filt Rate > 60 mL/min (>60); Globulin 2.9 g/dL (1.7-4.1); Glucose 91 mg/dL (80-110); HEMOLYSIS < 15 (0-50); Potassium 4.8 mmol/L (3.4-5.1); Sodium 134 mmol/L (137-145); Triglycerides 111 mg/dL (35-150)
[2022-07-20 11:49] LABS: HDL Cholesterol 121 mg/dL (40-60); LDL Cholesterol Calculated 59 mg/dL (<100)
[2022-07-20 12:05] LABS: TSH w/ Reflex to FT4 0.71 uIU/mL (0.47-4.68)
== END ==
PROVIDERS: PCP Registered Nurse Diabetes Educator; Referring Provider Registered Nurse Diabetes Educator; Visit Provider Registered Nurse Diabetes Educator
DX: E03.9 Hypothyroidism, unspecified (principal); E78.5 Hyperlipidemia, unspecified; R73.01 Impaired fasting glucose; K76.0 Fatty (change of) liver, not elsewhere classified; I10 Essential (primary) hypertension
CPT/HCPCS: 36415; 80053; 80061; 84443; 85027

== ENCOUNTER → 2022-08-30 16:12 | Outpatient (CLI) | payer MEDICARE, OTHER, SELFPAY ==
--- NOTE | 2022-08-30 | DI.MRI.S_ITS ---
PROCEDURE: MR LUMBAR SPINE WO CON INDICATIONS: Spinal stenosis, lumbar region TECHNIQUE: Noncontrast sagittal T1 spin echo and T2 fast echo, sagittal STIR, and T2 fast spin echo through the lumbar spine. In cases with scoliosis, additional coronal T2 fast spin echo may be performed. COMPARISON: [facility] [place], CR, XR LUMBAR SPINE WITH OBLIQUES PLUS FLEXION EXTENSION, 08/17/2022, 10:37. FINDINGS: Image quality: Excellent. Alignment and Curvature: There is trace anterolisthesis of L4 on L5.. Bone Marrow: Marrow is of normal overall signal. No acute vertebral body compression fractures. Spinal Cord: Conus medullaris terminates at the L1 level. Visualized cord demonstrates normal signal and size. Paraspinous Soft Tissues: No paravertebral masses. Discs: Mqrl-rr-[id number] disc desiccation is present most severe at L5-S1. T12-L1: Minimal disc bulge without spinal stenosis or foraminal narrowing. L1-L2: No disc bulge, spinal stenosis or foraminal narrowing. Mild facet and ligamentum flavum hypertrophy. Minimal epidural lipomatosis. L2-L3: Minimal disc bulge without spinal stenosis. Minimal left foraminal narrowing. Facet and ligamentum flavum hypertrophy and epidural lipomatosis are present. L3-L4: Mild disc bulge with minimal canal narrowing. Moderate bilateral foraminal narrowing, left greater than right. Facet and ligamentum flavum hypertrophy as well as epidural lipomatosis are present. L4-L5: Mild disc bulge without spinal stenosis. Mild bilateral foraminal narrowing with facet and ligamentum flavum hypertrophy. L5-S1: Mild disc bulge without spinal stenosis. Severe left foraminal narrowing with slight compression of the exiting left L5 nerve root. IMPRESSION: Multilevel disc bulges. Multilevel foraminal narrowing most severe at L5-S1 with mild compression of the exiting left L5 nerve root. Foraminal narrowing is overall predominantly secondary to facet and ligamentum flavum arthropathy. Dictated by: Katelynn Link M.D. on 08/31/2022 at 9:46 Approved by: Katelynn Link M.D. on 08/31/2022 at 10:18
== END ==
PROVIDERS: PCP Registered Nurse Diabetes Educator; Referring Provider Physical Medicine & Rehabilitation Pain Medicine; Visit Provider Physical Medicine & Rehabilitation Pain Medicine
DX: M48.062 Spinal stenosis, lumbar region with neurogenic claudication (principal); M48.07 Spinal stenosis, lumbosacral region; M51.36 Other intervertebral disc degeneration, lumbar region; M51.37 Other intervertebral disc degeneration, lumbosacral region; M47.816 Spondylosis without myelopathy or radiculopathy, lumbar region; M47.817 Spondylosis without myelopathy or radiculopathy, lumbosacral region
CPT/HCPCS: 72148

== ENCOUNTER → 2022-10-14 11:08 | Outpatient (CLI) | payer MEDICARE, OTHER, SELFPAY ==
--- NOTE | 2022-10-14 | DI.MG.S_ITS ---
BILATERAL DIGITAL SCREENING MAMMOGRAM 3D/2D WITH CAD: 10/14/2022 CLINICAL: Routine screening. Comparison is made to exams dated: 10/12/2021 mammogram, 10/09/2020 mammogram, 10/04/2019 mammogram, and 08/08/2018 mammogram - [facility]. There are scattered areas of fibroglandular density in both breasts (category b / 25%-50% glandular tissue). Current study was also evaluated with a Computer Aided Detection (CAD) system. There are benign vascular calcifications in both breasts. No significant masses, calcifications, or other findings are seen in either breast. There has been no significant interval change. IMPRESSION: BENIGN There is no mammographic evidence of malignancy. A 1 year screening mammogram is recommended. Based on the Tyrer Cuzick model (a risk assessment model) the patient's lifetime risk is 4.1% and her 10 year risk is 3.7%. According to the ACR, ACS, and NCCN guidelines, an annual breast MRI exam along with mammogram is recommended if the patient's lifetime risk is 20% or greater. This exam was interpreted at Station ID: [id number]. NOTE: For mammograms, a report in lay terms will be sent to the patient. Approximately 15% of breast malignancies will not be visualized mammographically. In the management of a palpable breast mass, a negative mammogram must not discourage biopsy of a clinically suspicious lesion. Electronically Signed By: Pollo [email or web address]/flex:10/14/2022 16:05:08 letter sent: Normal Exam ACR BI-RADS Category 2: Benign Finding(s) 3342F
== END ==
PROVIDERS: PCP Registered Nurse Diabetes Educator; Referring Provider Registered Nurse Diabetes Educator; Visit Provider Registered Nurse Diabetes Educator
DX: Z12.31 Encounter for screening mammogram for malignant neoplasm of breast (principal)
CPT/HCPCS: 77063; 77067

== ENCOUNTER → 2023-09-26 07:15 | Outpatient (CLI) | payer MEDICARE, OTHER, SELFPAY ==
[2023-09-26 08:12] LABS: Hematocrit 37.9 % (36-46); Hemoglobin 13.1 g/dL (12.0-16.0); Mean Corpuscular HGB Conc 34.6 % (30-36); Mean Corpuscular Hemoglobin 33.1 PG (26-34); Mean Corpuscular Volume 95.8 fL (80-100); Platelet Count 249 X10^3/uL (150-400); Red Blood Cell Count 3.96 X10^6/uL (4.0-5.2); Red Cell Distribution Width 13.6 % (11.6-14.8); White Blood Cell Count 4.7 X10^3/uL (4.5-11.0)
[2023-09-26 08:26] LABS: Alanine Aminotransferase 18 IU/L (<35); Albumin 4.1 g/dL (3.5-5.0); Albumin Globulin Ratio 1.4 (1.0-2.8); Alkaline Phosphatase 57 U/L (38-126); Aspartate Aminotransferase 27 IU/L (14-36); BUN Creatinine Ratio 25.6 (6-22); Bilirubin Total 0.7 mg/dL (0.2-1.3); Blood Urea Nitrogen 23 mg/dL (7-17); Calcium 8.8 mg/dL (8.4-10.2); Carbon Dioxide 27 mmol/L (22-32); Chloride 102 mmol/L (98-107); Cholesterol 195 mg/dL (140-199); Estimated Glomerular Filt Rate > 60 mL/min (>60); Globulin 2.9 g/dL (1.7-4.1); Glucose 112 mg/dL (80-110); HDL Cholesterol 107 mg/dL (40-60); HEMOLYSIS < 15 (0-50); Hemoglobin A1C% w Est Avg Glu 5.2 % (4.0-6.0); LDL Cholesterol Calculated 70 mg/dL (<100); Potassium 4.4 mmol/L (3.4-5.1); Sodium 134 mmol/L (137-145); Triglycerides 92 mg/dL (35-150)
[2023-09-26 08:57] LABS: TSH w/ Reflex to FT4 0.72 uIU/mL (0.47-4.68)
== END ==
LOC: LAB 07:17
PROVIDERS: PCP Registered Nurse Diabetes Educator; Referring Provider Registered Nurse Diabetes Educator; Visit Provider Registered Nurse Diabetes Educator
DX: K76.0 Fatty (change of) liver, not elsewhere classified (principal); R73.01 Impaired fasting glucose; E03.9 Hypothyroidism, unspecified; E78.5 Hyperlipidemia, unspecified; I10 Essential (primary) hypertension
CPT/HCPCS: 36415; 80053; 80061; 83036; 84443; 85027

== ENCOUNTER → 2023-09-28 09:59 | Outpatient (CLI) | payer MEDICARE, OTHER, SELFPAY ==
--- NOTE | 2023-09-28 10:00 | DI.RAD.S_ITS ---
PROCEDURE: XR DEXA AXIAL SKELETON INDICATIONS: eval, elevated risk for osteoporosis COMPARISON: [facility], , XR DEXA AXIAL SKELETON, 08/05/2017, 15:07. FINDINGS: Lumbar Spine: Bone mineral density 1.124 g/cm2, T score 0.7. Left Hip: Bone mineral density 1.043 g/cm2, T score 0.8. Left Femoral Neck: Bone mineral density 0.798 g/cm2, T score -0.5. Right Hip: Bone mineral density 1.041 g/cm2, T score 0.8. Right Femoral Neck: Bone mineral density 0 point 853 g/cm2, T score 0. Fracture Risk Calculation (when applicable): 10-year fracture risk of a major osteoporotic fracture 7.3% and of a hip fracture 0.6% on the right hip and 8.2% 0.9% of the left hip.. (T score greater or equal to -1.0 to: NORMAL) (T score from -1.1 to -2.4: OSTEOPENIA) (T score less than or equal to -2.5: OSTEOPOROSIS) IMPRESSION: Normal bone mineral density. Follow-up guidelines as follows: Osteoporosis: Consider a repeat DEXA and Vertebral Fracture Assessment (VFA) exam in 2 years or sooner if medically necessary, to reassess this patient's status. Osteopenia: Consider a repeat DEXA in 2-3 years to reassess this patient's status, or if there is a new clinical indication. Normal: Consider a repeat DEXA in 5 years or sooner, or if there is a new clinical indication. All treatment decisions require clinical judgment and consideration of individual patient factors, including patient preferences, comorbidities, previous drug use, risk factors not captured in the FRAX model (e.g., frailty, falls, vitamin D deficiency, increased bone turnover, interval significant decline in bone density ) and possible under- or over-estimation of fracture risk by FRAX. In addition, the NOF Guide recommends that FDA-approved medical therapies be considered in postmenopausal women and men age >= 50 years with a: * Hip or vertebral (clinical or morphometric) fracture * T-score of <=-2.5 at the spine or hip * Ten-year fracture probability by FRAX of >= 3% for hip fracture or >=20% for major osteoporotic fracture. People with diagnosed cases of osteoporosis or at high risk for fracture should have regular bone mineral density tests. For patients eligible for Medicare, routine testing is allowed once every 2 years. The testing frequency can be increased to one year for patients who have rapidly progressing disease, those who are receiving or discontinuing medical therapy to restore bone mass, or have additional risk factors. Dictated by: Katelynn Link M.D. on 09/29/2023 at 16:11 Approved by: Katelynn Link M.D. on 09/29/2023 at 16:13
== END ==
LOC: RAD 10:00
PROVIDERS: PCP Registered Nurse Diabetes Educator; Referring Provider Registered Nurse Diabetes Educator; Visit Provider Registered Nurse Diabetes Educator
DX: Z78.0 Asymptomatic menopausal state (principal)
CPT/HCPCS: 77080

== ENCOUNTER → 2023-11-07 11:00 | Outpatient (CLI) | payer MEDICARE, OTHER, SELFPAY ==
--- NOTE | 2023-11-07 11:01 | DI.MG.S_ITS ---
BILATERAL DIGITAL SCREENING MAMMOGRAM 3D/2D WITH CAD: 11/07/2023 CLINICAL: Routine screening. Comparison is made to exams dated: 10/14/2022 mammogram, 10/12/2021 mammogram, and 10/09/2020 mammogram - [facility]. There are scattered areas of fibroglandular density in both breasts (category b / 25%-50% glandular tissue). Current study was also evaluated with a Computer Aided Detection (CAD) system. There are benign vascular calcifications in both breasts. No significant masses, calcifications, or other findings are seen in either breast. There has been no significant interval change. IMPRESSION: BENIGN There is no mammographic evidence of malignancy. A 1 year screening mammogram is recommended. Based on the Tyrer Cuzick model (a risk assessment model) the patient's lifetime risk is 3.8% and her 10 year risk is 3.8%. According to the ACR, ACS, and NCCN guidelines, an annual breast MRI exam along with mammogram is recommended if the patient's lifetime risk is 20% or greater. This exam was interpreted at Station ID: [id number]. NOTE: For mammograms, a report in lay terms will be sent to the patient. Approximately 15% of breast malignancies will not be visualized mammographically. In the management of a palpable breast mass, a negative mammogram must not discourage biopsy of a clinically suspicious lesion. Electronically Signed By: Rajinder [email or web address]/flex:11/07/2023 12:15:08 letter sent: Normal Exam ACR BI-RADS Category 2: Benign Finding(s) [id number]
== END ==
LOC: MAMMO 11:01
PROVIDERS: PCP Registered Nurse Diabetes Educator; Referring Provider Registered Nurse Diabetes Educator; Visit Provider Registered Nurse Diabetes Educator
DX: Z12.31 Encounter for screening mammogram for malignant neoplasm of breast (principal); R92.323 Mammographic fibroglandular density, bilateral breasts
CPT/HCPCS: 77063; 77067

== ENCOUNTER → 2024-07-17 07:07 | Outpatient (CLI) | payer MEDICARE, OTHER, SELFPAY ==
[2024-07-17 08:21] LABS: Hematocrit 37.6 % (36-46); Hemoglobin 13.3 g/dL (12.0-16.0); Mean Corpuscular HGB Conc 35.4 % (30-36); Mean Corpuscular Hemoglobin 34.6 PG (26-34); Mean Corpuscular Volume 97.8 fL (80-100); Platelet Count 211 X10^3/uL (150-400); Red Blood Cell Count 3.85 X10^6/uL (4.0-5.2); Red Cell Distribution Width 14.2 % (11.6-14.8); White Blood Cell Count 4.2 X10^3/uL (4.5-11.0)
[2024-07-17 09:03] LABS: Alanine Aminotransferase 26 IU/L (<35); Albumin 4.3 g/dL (3.5-5.0); Albumin Globulin Ratio 1.7 (1.0-2.8); Alkaline Phosphatase 55 U/L (38-126); Aspartate Aminotransferase 38 IU/L (14-36); BUN Creatinine Ratio 22.1 (6-22); Bilirubin Total 0.8 mg/dL (0.2-1.3); Blood Urea Nitrogen 19 mg/dL (7-17); Calcium 9.3 mg/dL (8.4-10.2); Carbon Dioxide 27 mmol/L (22-32); Chloride 95 mmol/L (98-107); Cholesterol 229 mg/dL (140-199); Estimated Glomerular Filt Rate > 60 mL/min (>60); Globulin 2.6 g/dL (1.7-4.1); Glucose 102 mg/dL (70-99); HEMOLYSIS < 15 (0-50); Hemoglobin A1C% w Est Avg Glu 5.1 % (4.0-6.0); Potassium 5.1 mmol/L (3.4-5.1); Sodium 130 mmol/L (137-145); Total Protein 6.9 g/dL (6.3-8.2); Triglycerides 93 mg/dL (35-150)
[2024-07-17 09:15] LABS: HDL Cholesterol 144 mg/dL (40-60); LDL Cholesterol Calculated 66 mg/dL (<100)
== END ==
PROVIDERS: Family Provider Registered Nurse Diabetes Educator; PCP Registered Nurse Diabetes Educator; Referring Provider Registered Nurse Diabetes Educator; Visit Provider Registered Nurse Diabetes Educator
DX: R73.01 Impaired fasting glucose (principal); I10 Essential (primary) hypertension; E78.5 Hyperlipidemia, unspecified; E03.9 Hypothyroidism, unspecified; K76.0 Fatty (change of) liver, not elsewhere classified
CPT/HCPCS: 36415; 80053; 80061; 83036; 84443; 85027

== ENCOUNTER → 2024-10-23 08:52 | Outpatient (CLI) | payer MEDICARE, OTHER, SELFPAY ==
[2024-10-23 10:33] LABS: Alanine Aminotransferase 23 IU/L (<35); Albumin 4.3 g/dL (3.5-5.0); Albumin Globulin Ratio 1.5 (1.0-2.8); Alkaline Phosphatase 53 U/L (38-126); Blood Urea Nitrogen 23 mg/dL (7-17); Calcium 9.7 mg/dL (8.4-10.2); Carbon Dioxide 25 mmol/L (22-32); Chloride 96 mmol/L (98-107); Estimated Glomerular Filt Rate > 60 mL/min (>60); Globulin 2.9 g/dL (1.7-4.1); Glucose 113 mg/dL (70-99); HEMOLYSIS < 15 (0-50); Potassium 4.7 mmol/L (3.4-5.1); Sodium 130 mmol/L (137-145); Total Protein 7.2 g/dL (6.3-8.2)
== END ==
PROVIDERS: Family Provider Registered Nurse Diabetes Educator; PCP Registered Nurse Diabetes Educator; Referring Provider Registered Nurse Diabetes Educator; Visit Provider Registered Nurse Diabetes Educator
DX: K76.0 Fatty (change of) liver, not elsewhere classified (principal); E87.1 Hypo-osmolality and hyponatremia
CPT/HCPCS: 36415; 80053